=== PATIENT | male | born 1950 | race Caucasian/White ===

== ENCOUNTER 2018-11-30 09:06 | Outpatient (REF) | payer MEDICARE, SELFPAY ==
[2018-11-30 13:56] LABS: Anion Gap 11.3 mmol/L (3-11); BUN 22 mg/dL (7-18); CO2 25.7 mmol/L (21.0-32.0); CREATININE 1.24 mg/dL (0.70-1.30); Calcium 9.8 mg/dL (8.5-10.1); Chloride 101 mmol/L (98-107); Estimated GFR 57.97 (mL/min/1.73m2); Glucose 99 mg/dL (70-100); Potassium 4.5 mmol/L (3.5-5.1); Sodium 138 mmol/L (136-145)
== END 2018-11-30 09:26 ==
LOC: NCHCN 09:06
PROVIDERS: PCP Internal Medicine; Visit Provider Internal Medicine
DX: I10 Essential (primary) hypertension (principal)
CPT/HCPCS: 80048

== ENCOUNTER 2019-02-26 10:03 | Outpatient (REF) | payer MEDICARE, SELFPAY ==
[2019-02-26 12:54] LABS: Uric Acid 8.3 mg/dL (3.5-7.2)
== END 2019-02-26 10:23 ==
LOC: NCHCN 10:03
PROVIDERS: PCP Internal Medicine; Visit Provider Internal Medicine
DX: I10 Essential (primary) hypertension (principal); M10.9 Gout, unspecified
CPT/HCPCS: 84550

== ENCOUNTER 2019-06-15 11:20 | Emergency (ER) | payer MEDICARE, OTHER, SELFPAY ==
[2019-06-15 11:41] VITALS: BP 133/78; PULSE 100; RESP 17; TEMP 37.1; O2SAT 95
--- NOTE | 2019-06-15 12:01 | ED.GENADUL_ITS ---
Discharge Plan Disposition Patient Disposition: HOME Condition: Good Discharge Details Chief Complaint: Cellulitis Clinical Impression: Gouty arthritis Primary Care Provider: Wilber Lomax ED Provider: Hortensia Brown Home Meds and New Rx's Prescriptions: New colchicine 0.6 mg tablet 0.6 mg PO DAILY Qty: 7 RF: 0 No Action lisinopril 10 MG tablet 10 mg PO DAILY RF: 0 hydrochlorothiazide 12.5 mg Capsule 12.5 mg PO DAILY RF: 0 Discharge Instructions Instructions: Gout (ED) Additional Instructions: Ice to the area of swelling. Rest activities as tolerated. Use colchicine as discussed. Once your pain has improved significantly you may discontinue colchicine and begin NSAIDs such as ibuprofen or Motrin [id number] for discomfort. Follow-up with orthopedics as discussed. Return for alarming symptoms, increased pain, swelling or worsening symptoms sooner if needed Referrals: Gilmar Jenkins MD [ [facility] STAFF PHYSICIAN] - Discharge Data Discharge Date/Time-TO BE ENTERED AT DEPARTURE: 06/15/19 13:54 Medical Decision Making Is a 68-year-old patient with a history of BPH as well as essential hypertension who presents for complaints of left third digit pain and swelling. Patient reports 1 week ago he sustained a splinter beneath the nail removed most of the splinter then remove the remainder of the splinter last evening. Patient denies any pain beneath his nail however he reports swelling of his digit specifically the PIP joint redness and swelling have extended toward the palm. Patient reports mild pain toward the palm. Pain was maximum yesterday somewhat improved today however patient reports an increase in limitation of range of motion specifically he has his finger held at partial extension with limited flexion of the finger. Patient does have mild pain with extension of the digit passively. Patient has notable erythema over the PIP joint as well as swelling of the digit which does not diffusely involve the distal phalanx. No significant fluctuation or indication of abscess. At site of previous splinter there is no associated erythema, purulent drainage or pain to indicate infection. Labs specifically CBC, sed rate, CRP and uric acid were ordered in addition to x-ray of the digit. Consult orthopedics who will evaluate the patient in the emergency room. Patient has no associated leukocytosis or shift. Patient does have a notable elevation of his uric acid 7.9. Elevation of C-reactive protein 2.18. Sed rate 22. Orthopedics Dr. Jenkins, evaluated the patient and do not feel this patient likely has a infected tenosynovitis however they do feel likely has a focal infection or inflammatory condition involving the PIP joint only. Given patient's elevation of his uric acid feel likely this patient has gouty arthritis. Do not recommend aspiration or incision and drainage of the joint at this time rather treatment for acute gout and close observation. Recommend return if needed for increase or worsening symptoms. Again patient has no systemic signs or symptoms of infection. Patient agrees with plan of care. Colchicine prescribed, renal function reviewed. The patient was stable and requested discharge. Prior to discharge, my usual and customary return precautions were reviewed with the patient - this included follow-up instructions and reasons to return to the Emergency Department if conditions worsens, does not improve as expected, or other new concerns arise. HPI General Date/Time Provider Initiated Documentation: 06/15/19 12:00 . HPI Narrative: Is a 68-year-old patient who presents to the emergency room for concerns of left third digit pain. Patient reports he was working with wood approximately 1 week ago and had a splinter embedded beneath his fingernail he was able to partially remove most of the splinter. Patient reports yesterday he was able to fully remove the remainder of the splinter however finger is increasingly swollen. Patient specifically reports the PIP joint is moderately swollen and tender. Patient reports increasing pain with range of motion of the digit. Now having limited range of motion with flexion and extension. Patient reports pain is extending toward his palm. Denies any systemic symptoms. Denies any fever, chills, nausea vomiting. No other concerning complaints. No drainage beneath the nail. Tetanus up-to-date. Related Data Home Medications Medication Instructions Recorded Confirmed lisinopril 10 mg PO DAILY 02/17/16 06/15/19 colchicine 0.6 mg PO DAILY #7 tab 06/15/19 hydrochlorothiazide 12.5 mg PO DAILY 06/15/19 06/15/19 Previous Rx's Medication Instructions Recorded colchicine 0.6 mg PO DAILY #7 tab 06/15/19 Allergies Allergy/AdvReac Type Severity Reaction Status Date / Time No Known Allergies Allergy Unverified 06/15/19 11:44 General Stated Complaint: Cellulitis JESE: 3 Review of Systems All systems reviewed & are unremarkable except as noted in HPI and below Constitutional Constitutional: Denies chills, Denies fatigue, Denies fever(s), Denies headache(s) and Denies malaise ENT Ears, Nose, Mouth, and Throat: Denies headache(s) Musculoskeletal Musculoskeletal: Denies deformity, Reports joint swelling, Reports limited range of motion, Denies numbness, Reports stiffness and Denies tingling Integumentary/Breasts Skin/Breast: Reports erythema, Reports skin swelling and Reports wounds Neurologic Neurologic: Denies headache(s), Denies numbness and Denies tingling Endocrine Endocrine: Denies fatigue [facility] Medical History BPH with obstruction/lower urinary tract symptoms Essential hypertension Surgical History Appendectomy Social History Smoking/Tobacco Use Status: Never Alcohol Intake: current Alcohol Intake frequency: holidays/special occasions only Drug use: Never Do you feel safe at home: Yes Do you feel safe in your relationship?: Yes Exam Narrative Exam Narrative: CONST: Healthy appearing patient, in no acute distress. Well hydrated. Alert and alert. MUSCULOSKELETAL: Normal Gait. FROM of all extremities. Patient with limited flexion of left third digit. Mild pain with passive extension. Swelling of the digit is noted diffusely however maximum area of swelling noted over the PIP joint. Patient with mild erythema extending toward the palm with no associated lymphangitis. SKIN: Normal. Dry. No rashes. No obvious purulence or infected appearing wounds beneath the nail or at the nail bed. No associated paronychia. No focal fluctuance of the digit. Sensation intact distally. NEURO: Alert and awake. Speech clear. PSYCH: Normal affect. Cooperative. Course Vital Signs Vital signs: Vital Signs Temperature 37.1 C 06/15/19 11:41 Pulse 100 H 06/15/19 11:41 Respiratory Rate 17 06/15/19 11:41 Blood Pressure 133/78 06/15/19 11:41 Pulse Oximetry 95 06/15/19 11:41 Temperature 37.1 C 06/15/19 11:41 Pulse 100 H 06/15/19 11:41 Respiratory Rate 17 06/15/19 11:41 Respiratory Effort Non-Labored 06/15/19 11:43 Blood Pressure 133/78 06/15/19 11:41 Blood Pressure Position Sitting 06/15/19 11:41 Pulse Oximetry 95 06/15/19 11:41 Oxygen Delivery Method Room Air 06/15/19 11:41 Oxygen Flow Rate 0 06/15/19 11:41 Pain Level 2 06/15/19 11:41
[2019-06-15 12:44] LABS: Abs Immature Grans 0.01 k/cumm (0.0-0.09); Absolute Basophil Count 0.01 k/cumm (0.0-0.2); Absolute Eosinophil Count 0.08 k/cumm (0.0-0.7); Absolute Lymphocyte Count 0.88 k/cumm (1.2-3.4); Absolute Neutrophil Count 6.09 k/cumm (1.2-6.7); Basophils % 0.1; HCT 39.5 % (40.0-50.0); HGB 13.5 g/dL (13.5-17.5); Immature Grans % 0.1; Lymphocytes % 11.5; Mean Corp. HGB Concentration 34.2 g/dL (32.0-36.0); Mean Corpuscular Hemoglobin 30.9 pg (27.0-33.0); Mean Corpuscular Volume 90.4 fL (80-95); Mean Platelet Volume 9.7 fL (8.0-11.0); Monocytes % 7.8; Neutrophils % 79.5; Platelet Count 213 x1000/uL (130-400); RBC 4.37 m/cumm (4.50-6.00); RBC Distribution Width 12.8 % (11.8-14.1); White Blood Cell Count 7.67 k/cumm (4.4-10.8)
[2019-06-15] MEDS: cefTRIAXone 1 GM/50 ML BAG IVPB (12:52)
[2019-06-15 12:56] LABS: C-Reactive Protein 2.18 mg/dL (0.0-0.3)
[2019-06-15 13:08] LABS: Uric Acid 7.9 mg/dL (3.5-7.2)
--- NOTE | 2019-06-15 13:17 | DI.RAD_ITS ---
EXAM: XR FINGER LT MIDDLE INDICATION: Pain, wood stuck in finger removed 4 days ago. COMPARISON: No exams were available for comparison TECHNIQUE: 2D digital imaging was performed. FINDINGS: No acute fracture or dislocation is identified. Joint space narrowing, periarticular spurring and thao bchondral cysts are seen. No erosions are identified. There is soft tissue swelling of the left mid dle finger. No radiopaque foreign bodies are seen in the soft tissues. IMPRESSION: 1. No acute fracture or dislocation. 2. Soft tissue swelling of the left middle finger. 3. Osteoarthritis.
[2019-06-15 13:26] LABS: ESR 22 mm/hr (1-20)
[2019-06-15 13:51] VITALS: BP 135/90; PULSE 67; TEMP 37.5; O2SAT 97
[2019-06-15 13:53] VITALS: BP 135/90; PULSE 67; TEMP 37.5; O2SAT 97
--- NOTE | 2019-06-15 13:56 | OCONE_ITS ---
Date of service: 06/15/19 Time of Service: 14:00 History of Present Illness Narrative: Chief Complaint: Left hand long finger proximal knuckle swelling and pain HPI: 68-year-old male with approximately 5 days of left finger increasing swelling and tightness about the PIPJ. Thought it could be related to a splinter removed from the paronychia 6 days ago. However there is been no red ness, no drainage, he denies all fevers and chills. The pain is gradually increased as the swelling and tightness increased over the past few days. May actually be feeling better today than yesterday but thought it should be evaluated. No other puncture wounds or sources of infection. No significant pain with range of motion although it is limited by the joint swelling and tightness. Has significant related medical history of gout and podagra recently a few times this year. 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 History, physical exam, laboratory results, and radiographs all consistent with gouty arthritis at this time. Unlikely septic arthritis or concomitant septic arthritis. Initiate conservative medical treatments for acute gout attack. Patient very agreeable to this plan and is already started to improve probably over the last day. Follow-up with primary medical doctor for evaluation and optimization of gout. Follow-up with orthopedics as needed. No indication for acute surgical intervention at this time. Patient made aware of the common signs and symptoms of septic arthritis. Also made aware of the risk and possibility of superimposed bacterial infection. He will monitor his symptoms for continued improvement and return right away or call our answering service with any decompensation or concerns. Findings discussed with Diane Ascencio, PAC emergency room provider who is in agreement and will start treatment with colchicine and discharge the patient as he is making clinical improvement. All questions were answered Patient agrees and understands the treatment plan Hi will call if any changes or concerns Review of Systems Constitutional Constitutional: Denies chills and Denies fever(s) Eyes Eyes: Denies diplopia and Denies loss of vision ENT Ears, Nose, Mouth, and Throat: Denies dental pain and Denies other (cavities) Cardiovascular Cardiovascular: Denies chest pain with activity, Denies irregular heart rhythm and Denies dyspnea Respiratory Respiratory: Denies cough and Denies dyspnea Gastrointestinal Gastrointestinal: Denies nausea and Denies vomiting Musculoskeletal Musculoskeletal: Reports as per HPI Integumentary/Breasts Skin/Breast: Denies rash and Denies wounds Neurologic Neurologic: Reports as per HPI and Denies loss of vision Psychiatric Psychiatric: Denies anxiety and Denies depression Hematologic/Lymphatic Hematologic/Lymphatic: Denies easy bleeding and Denies easy bruising Allergic/Immunologic Allergic/Immunologic: Reports as per HPI [facility] Medical History (Updated 06/15/19 @ 17:06 by Gilmar Jenkins MD) BPH with obstruction/lower urinary tract symptoms Essential hypertension Surgical History Appendectomy Social History Smoking/Tobacco Use Status: Never Alcohol Intake: current Alcohol Intake frequency: holidays/special occasions o nly Drug use: Never Do you feel safe at home: Yes Do you feel safe in your relationship?: Yes Exam Const General: cooperative, comfortable and no acute distress Orientation: alert, awake and not confused Limitations: mental status not altered and no language barrier HENMT Head: normocephalic and atraumatic Neck Neck: normal visual inspection and full ROM Resp Effort & Inspection: normal respiratory effort, able to speak in complete sentences, no audible wheezes and no grunting General: deferred Skin Lesions: no lesions Rashes: no rashes Trauma: no lacerations or abrasions Wounds: no wounds Neuro General: alert, awake and oriented x3 Cognition: normal cognition Speech: speech normal Extrem Other: Full painless range of motion of bilateral upper extremities and bilateral lower extremities in the cervical spine. No other joints currently inflamed, swollen, or painful. Full painless cervical range of motion. Negative radiculopathy. Isolated significant circumferential joint effusion and edema about the left hand long finger PIPJ. No tenderness to palpation about the flexor tendons distally or proximally. No tenderness over the extensor tendon distally or proximally. No felon. No paronychia. No tenderness over the distal nail plate or pulp. Full sensation intact radial and ulnar digit. Brisk cap refill. No wounds, no drainage. Able to tolerate limited range of motion without significant discomfort. Range of motion limited by tightness and not true pain with passive short arc motion. Significant chronic radial and ulnar deformities appreciated of multiple digits proximal interphalangeal joints. Psych Appearance: grossly normal Mental Status: mental status grossly normal Speech and Movement: speech and movement normal Affect: normal affect Attitude: cooperative Results Last Vital Signs Temp 99.5 F 06/15/19 13:53 Pulse 67 06/15/19 13:53 Resp 17 06/15/19 11:41 BP 135/90 06/15/19 13:53 Pulse Ox 97 06/15/19 13:53 Labs Result diagrams: 06/15/19 12:31 Labs: Laboratory Results - last 24 hr 06/15/19 06/15/19 06/15/19 12:31 12:31 12:31 WBC 7.67 RBC 4.37 L Hgb 13.5 Hct 39.5 L MCV 90.4 MCH 30.9 MCHC 34.2 RDW 12.8 Plt Count 213 MPV 9.7 Immature Gran % 0.1 Neutrophils % 79.5 Lymphocytes % 11.5 Monocytes % 7.8 Eosinophils % 1.0 Basophils % 0.1 Absolute Neutrophils 6.09 Absolute Lymphocytes 0.88 L Absolute Monocytes 0.60 Absolute Eosinophils 0.08 Absolute Basophils 0.01 ESR 22 H Uric Acid 7.9 H C-Reactive Protein 2.18 H Imaging Additional studies: Afebrile temperature max 98.8. No leukocytosis WBC 7.7. Uric acid elevated at 7.9 with elevated CRP at 2.2. Imaging Studies: Left hand x-ray images and report independently reviewed: Report states soft tissue swelling and arthrosis about the long finger PIPJ. Significant, clearly visible punched out lesions and sclerotic overhanging edges. Joint space narrowing.
== END 2019-06-15 13:54 | disposition home or self-care (01) ==
PROVIDERS: Emergency Provider Physician Assistant; PCP Internal Medicine
DX: M10.9 Gout, unspecified (principal); I10 Essential (primary) hypertension
CPT/HCPCS: 36415; 85652; 96365; 99254; 99284; 73140; 84550; 85025; 86140; J0696

== ENCOUNTER 2019-08-24 10:29 | Outpatient (REF) | payer MEDICARE, SELFPAY ==
[2019-08-24 21:41] LABS: BUN 19 mg/dL (7-18); CREATININE 1.17 mg/dL (0.70-1.30); Calcium 9.9 mg/dL (8.5-10.1); Chloride 105 mmol/L (98-107); Glucose 107 mg/dL (74-106); Potassium 4.2 mmol/L (3.5-5.1); Sodium 141 mmol/L (136-145); Uric Acid 7.4 mg/dL (3.5-7.2)
== END 2019-08-24 10:49 ==
LOC: NCHCN 10:29
PROVIDERS: PCP Internal Medicine; Visit Provider Internal Medicine
DX: M10.9 Gout, unspecified (principal); I10 Essential (primary) hypertension; N40.1 Benign prostatic hyperplasia with lower urinary tract symptoms
CPT/HCPCS: 80048; 84550

== ENCOUNTER 2019-09-26 09:51 | Outpatient (REF) | payer MEDICARE, SELFPAY ==
[2019-09-26 22:12] LABS: Potassium 4.4 mmol/L (3.5-5.1)
== END 2019-09-26 10:11 ==
LOC: NCHCN 09:51
PROVIDERS: PCP Internal Medicine; Visit Provider Internal Medicine
DX: I10 Essential (primary) hypertension (principal)
CPT/HCPCS: 84132; 84550

== ENCOUNTER 2020-08-12 21:33 | Outpatient (REF) | payer MEDICARE, SELFPAY ==
[2020-08-13 14:20] LABS: COVID-19 RT-PCR UVMMC Result Negative (Negative)
== END 2020-08-12 21:34 | disposition home or self-care (01) ==
LOC: NCHCN 21:33
PROVIDERS: PCP Internal Medicine; Visit Provider Internal Medicine
DX: Z20.822 Contact with and (suspected) exposure to COVID-19 (principal)
CPT/HCPCS: U0003; U0005

== ENCOUNTER 2020-08-19 12:52 | Outpatient (REF) | payer MEDICARE, SELFPAY ==
[2020-08-20 15:20] LABS: COVID-19 RT-PCR UVMMC Result Negative (Negative)
== END 2020-08-19 12:53 | disposition home or self-care (01) ==
LOC: NCHCN 12:52
PROVIDERS: PCP Internal Medicine; Visit Provider Internal Medicine
DX: Z20.822 Contact with and (suspected) exposure to COVID-19 (principal)
CPT/HCPCS: U0003; U0005

== ENCOUNTER 2020-08-25 20:10 | Outpatient (REF) | payer MEDICARE, OTHER, SELFPAY ==
[2020-08-25 13:50] LABS: Anion Gap 8.1 mmol/L (3-11); BUN 17 mg/dL (7-18); CO2 26.9 mmol/L (21.0-32.0); CREATININE 1.1 mg/dL (0.70-1.30); Calcium 10.8 mg/dL (8.5-10.1); Calculated LDL 118 mg/dL (<100); Chloride 102 mmol/L (98-107); Cholesterol 197 mg/dL (<200); Glucose 96 mg/dL (74-106); HDL Cholesterol 44 mg/dL (40-60); Potassium 4.7 mmol/L (3.5-5.1); Sodium 137 mmol/L (136-145); Triglyceride 177 mg/dL (<150)
[2020-08-25 14:05] LABS: Uric Acid 6.1 mg/dL (3.5-7.2)
[2020-08-25 21:27] LABS: Rheumatoid Factor <8.6 IU/mL (<12.0)
[2020-08-26 10:15] LABS: Cyclic Citrullinated Peptide <2.5 U/mL (<5.0)
== END 2020-08-25 20:11 | disposition home or self-care (01) ==
LOC: NCHCN 20:10
PROVIDERS: PCP Internal Medicine; Visit Provider Internal Medicine
DX: I10 Essential (primary) hypertension (principal); M19.041 Primary osteoarthritis, right hand; M16.12 Unilateral primary osteoarthritis, left hip; M10.9 Gout, unspecified; Z13.220 Encounter for screening for lipoid disorders
CPT/HCPCS: 80048; 80061; 86200; 84550; 86431

== ENCOUNTER 2021-03-03 17:27 | Outpatient (REF) | payer MEDICARE, OTHER, SELFPAY ==
[2021-03-03 21:49] LABS: ALT 33 U/L (16-63); AST 19 U/L (15-37); Albumin 4.3 g/dL (3.4-5.0); Alkaline Phosphatase 104 U/L (46-116); Anion Gap 9.7 mmol/L (3-11); BUN 17 mg/dL (7-18); Bilirubin, Total 0.5 mg/dL (0.2-1.0); CO2 25.3 mmol/L (21.0-32.0); Calcium 10.2 mg/dL (8.5-10.1); Chloride 106 mmol/L (98-107); Glucose 96 mg/dL (74-106); Potassium 4.5 mmol/L (3.5-5.1); Sodium 141 mmol/L (136-145); Total Protein 7.1 g/dL (6.4-8.2); Uric Acid 4.6 mg/dL (3.5-7.2)
[2021-03-03 22:00] LABS: Calculated LDL 51 mg/dL (<100); Cholesterol 119 mg/dL (<200); HDL Cholesterol 39 mg/dL (40-60); Triglyceride 146 mg/dL (<150)
[2021-03-05 10:07] LABS: Parathyroid Hormone,Intact 27 pg/mL (19-88)
== END 2021-03-03 17:28 | disposition home or self-care (01) ==
LOC: NCHCN 17:27
PROVIDERS: PCP Internal Medicine; Visit Provider Internal Medicine
DX: I10 Essential (primary) hypertension (principal); M10.9 Gout, unspecified; Z86.39 Personal history of other endocrine, nutritional and metabolic disease
CPT/HCPCS: 80053; 80061; 83519; 83970; 84550

== ENCOUNTER 2021-04-22 23:16 | Emergency (ER) | payer MEDICARE, OTHER, SELFPAY ==
--- NOTE | 2021-04-22 23:15 | DI.CT_ITS ---
Exam(s) CT ABDOMEN PELVIS W EXAM: CT ABDOMEN PELVIS W CLINICAL HISTORY: mid umbilical abdominal pain, vomiting TECHNIQUE: COMPARISON: CT ABD PELVIS WO CONTRAST from 02/17/2016 FINDINGS: CT examination of the abdomen and pelvis was performed with bolus infusion of 100 cc of Omnipaque 350 . Images obtained through the lung bases are unremarkable. The liver appears normal except for apparent incidental small hepatic cysts period. Spleen is unremarkable in appearance.. Gallbladder and bile ducts are unremarkable. Pancreas is unremarkable in appearance. Adrenals appear normal bilaterally. Kidneys appear normal except for some apparent small bilateral renal cysts with no solid renal mass, hydronephrosis, or nephrolithiasis. Unremarkable bladder. There is no evidence of abdominal or pelvic adenopathy. Abdominal aorta is of normal diameter and no abnormality is seen involving major visceral branches.. Appendix is nonvisualized but there is no evidence of appendicitis. No evidence of diverticulitis. There is small bowel dilatation in mid abdomen with some fecalization of small bowel contents suggest ing partial or early small bowel obstruction, probable transition zone mid abdomen. No significant abdominal wall hernia seen. Impression: Probable early/incomplete small bowel obstruction, please see above discussion. Appropriate follow-u p studies requested. RADIATION DOSE DELIVERED: 1,034.81mGy.cm Total DLP 1,034.81mGy.cm Total DLP 20.61mGy CTDIvol DATA REPOSITORY: All CT scans at this facility are submitted to the National Radiology Data Registry (NRDR) Dose Index Registry (DIR) with the [employer] ([employer]). RADIATION OPTIMIZATION: All CT scans at this facility use at least one of these dose optimization te chniques: automated exposure control; mA and/or kV adjustment per patient size (includes targeted exa ms where dose is matched to clinical indication); or iterative reconstruction.
--- NOTE | 2021-04-22 23:15 | RT.EKG_ITS ---
APPROVED REPORT Exam: Resting ECG Reason for Exam: abdominal pain Patient Location: E HR:102 bpm ECG Measurements Heart Rate 102 AXIS MO 167 P 42 QRSd 85 QRS 39 QT 346 T 43 QTc 451 Conclusion Sinus tachycardia...rate> 99 Physician: no stemi
[2021-04-22 23:28] VITALS: BP 164/107; PULSE 100; RESP 20; TEMP 36.3; O2SAT 100
--- NOTE | 2021-04-22 23:44 | W.ED.GENAD ---
Discharge Plan Disposition Patient Disposition: HOME Condition: Good Discharge Details Clinical Impression: Bowel obstruction Primary Care Provider: Wilber Lomax ED Provider: Zach Lambert Home Meds and New Rx's Prescriptions: Continued lisinopril 10 MG tablet 10 mg PO DAILY RF: 0 colchicine 0.6 mg tablet 0.6 mg PO DAILY Qty: 7 RF: 0 atorvastatin 20 mg tablet 20 mg PO DAILY RF: 0 allopurinol 300 mg tablet 300 mg PO DAILY RF: 0 spironolactone 25 mg tablet 25 mg PO DAILY RF: 0 Discharge Instructions Instructions: Bowel Obstruction (ED) Additional Instructions: At this time your CAT scan shows that you have evidence of a small bowel obstruction. However your pain is completely resolved, and you have been able to tolerate water by mouth without difficulty. During our discussion together you have elected to go home. It is vitally important that you follow-up closely with your primary care provider soon as possible. Please take the Zofran as needed for nausea. For the next 24 hours only drink water in small regular sips. After that you can gradually and slowly transition to things like Jell-O, applesauce, or milkshakes. After 48 hours of that you can gradually transition to soft foods. After 48 hours of that you can transition to regular foods. If at any point your abdominal pain or vomiting returns please return immediately to the emergency department for reassessment as this would signify that your obstruction has not resolved. If you notice any worsening of your symptoms, or any new symptoms such as vomiting, diarrhea, fever, chills, shortness of breath, chest pain, numbness, weakness, or fainting , please return immediately to the emergency department for reevaluation. Please follow up with your primary care provider as soon as possible for reassessment and reevaluation. As always, it was a pleasure participating in your medical care today. Referrals: Wilber Lomax MD [Primary Care Provider] - Medical Decision Making 70-year-old male with a past medical history of appendectomy as a child, gout, high cholesterol, hypertension, presents today for evaluation of abdominal pain. The patient states that starting at noon he has severe abdominal pain describes as aching and stabbing in the central abdomen. Does not radiate anywhere else. He has had nausea as well as 3 episodes of vomiting. He denies any hematemesis. No diarrhea. No hematochezia. He denies symptoms like this in the past. He has not eaten anything today. Last bowel movement was this a.m. and it was normal. Pain does seem to come and go, but will only relapse for a few seconds. He denies any other complaints at this time. No other modifying. Physical exam demonstrates a mildly distended abdomen, reduce bowel sounds, generalized tenderness around the periumbilical region. Differential includes obstruction, colitis,. We will get CT scan, treat with pain medications, monitor closely and reassess. 2:23 AM Laboratory work-up has returned, minimal white count of 11, renal function stable, electrolytes are unremarkable. Troponin negative, EKG benign, lipase normal. On reassessment patient's pain had nearly completely resolved. Repeat abdominal exam demonstrates no significant abdominal tenderness. Patient is feeling much better. He has had no vomiting while here. Patient was given a glass of water and he was able to keep this down without any nausea or vomiting. Patient states that I feel great, I want to go home now. CT results demonstrate evidence of small bowel obstruction. This is not the first time the patient has had this. I had a long discussion with the patient regarding risk and benefit of home versus admission. At this time through shared decision-making process understanding the risk and benefit, including worst-case scenario of worsening of his problem and subsequent , patient has a leg to go home. Patient has agreed to rehab sips of water for the next 24 hours, then gradual transition of diet at home primarily utilizing a liquid diet. Given the complete resolution of the patient's pain, his ability to tolerate p.o. without any challenge, and his clear and unequivocal desire/decision to go home and not be admitted, taking all this into consideration we will respect patient's wishes and discharge home. I spent a notable amount of time with the patient and his significant other at bedside discussing his needed diet, signs and symptoms which would necessitate immediate return, as well as the importance of extremely close follow-up with his primary care provider for reassessment. Patient has been rehydrated with 1.5 L of normal saline, he continues to feel well. Patient will be discharged home. I have extensively reviewed the treatment plan and discharge instructions with the patient and their family. I have addressed all patient concerns at this time. The patient and family was made aware of what symptoms to monitor for that would warrant a return to the emergency department. Discussed the plan with the patient and family, they demonstrate verbal understanding and agreement with our assessment and plan at this time. The documentation in this chart was dictated using [employer] dictation software. Please excuse any dictation errors. FINDINGS: Liver: Multiple hepatic cysts. Scattered, hypoenhancing, too small to characterize lesions in each lobe. Gallbladder and bile ducts: Normal. No calcified stones. No ductal dilation. Pancreas: Normal. No ductal dilation. Spleen: Normal. No splenomegaly. Adrenal glands: Normal. No mass. Kidneys and ureters: Normal. No hydronephrosis. Stomach and bowel: There are multiple dilated loops of small bowel with air-fluid levels. Transition to normal caliber anteriorly in right mid abdomen, 11/19, . Small bowel feces sign. No colonic dilatation. Multiple sigmoid diverticula. Appendix: No evidence of appendicitis. Intraperitoneal space: Unremarkable. No free air. No significant fluid collection. Vasculature: Unremarkable. No abdominal aortic aneurysm. Lymph nodes: Unremarkable. No enlarged lymph nodes. Urinary bladder: Unremarkable as visualized. Reproductive: Enlarged prostate. Bones/joints: Unremarkable. No acute fracture. Soft tissues: Unremarkable. IMPRESSION: 1. Small bowel obstruction. 2. Sigmoid diverticula. 3. Enlarged prostate. Thank you for allowing us to participate in the care of your patient. Dictated and Authenticated by: Kenny Salinas DO 04/23/2021 2:04 AM Eastern Time ([place] & [place]) HPI General Date/Time Provider Initiated Documentation: 04/22/21 23:18. HPI Narrative: 70-year-old male with a past medical history of appendectomy as a child, gout, high cholesterol, hypertension, presents today for evaluation of abdominal pain. The patient states that starting at noon he has severe abdominal pain describes as aching and stabbing in the central abdomen. Does not radiate anywhere else. He has had nausea as well as 3 episodes of vomiting. He denies any hematemesis. No diarrhea. No hematochezia. He denies symptoms like this in the past. He has not eaten anything today. Last bowel movement was this a.m. and it was normal. Pain does seem to come and go, but will only relapse for a few seconds. He denies any other complaints at this time. No other modifying. Related Data Home Medications Medication Instructions Recorded Confirmed lisinopril 10 mg PO DAILY 02/17/16 04/22/21 colchicine 0.6 mg PO DAILY #7 tab 06/15/19 04/22/21 allopurinol 300 mg PO DAILY 04/22/21 04/22/21 atorvastatin 20 mg PO DAILY 04/22/21 04/22/21 spironolactone 25 mg PO DAILY 04/22/21 04/22/21 Previous Rx's Medication Instructions Recorded colchicine 0.6 mg PO DAILY #7 tab 06/15/19 Allergies Allergy/AdvReac Type Severity Reaction Status Date / Time No Known Allergies Allergy Unverified 04/22/21 23:31 General Stated Complaint: Abd Prob JESE: 3 Review of Systems All systems reviewed & are unremarkable except as noted in HPI and below PFSH Medical History BPH with obstruction/lower urinary tract symptoms Essential hypertension Surgical History Appendectomy Social History Smoking/Tobacco Use Status: Never Smoking risk assessment performed?: Yes Alcohol Intake: current Alcohol Intake frequency: holidays/special occasions only Drug use: Never Do you feel safe at home: Yes Do you feel safe in your relationship?: Yes Exam Narrative Exam Narrative: 1.Const: Well-nourished, Well-developed, appearing stated age 2.Eyes: PERRL, no conjunctival injection, and symmetrical lids. 3.ENT: Atraumatic external nose and ears. Dry MM. Neck: Symmetric, trachea midline, No thyromegaly. 4.CVS: +S1/S2, No murmurs or gallops. Peripheral pulses 2+ and equal in all extremities. Brisk capillary refill in all extremities. 5.RESP: Unlabored respiratory effort. Clear to auscultation bilaterally. No wheezes rales or rhonchi 6.GI: Slightly distended, mild guarding. Rectus diastases noted in the anterior abdominal wall. No clear evidence of hernia. No clear evidence of incarcerated or strangulated hernia. Mild tenderness throughout, primarily in the periumbilical region. There does appear to be some pain at McBurney's point, as well as some right upper quadrant tenderness however there is a negative Arevalo sign on exam. 7.MSK: Normocephalic/Atraumatic, Extremities w/o deformity or ttp No cyanosis or clubbing, Normal movement of all extremities 8.Skin: Warm, Dry. No rashes or lesions. 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 Sensation grossly intact, no focal neurologic deficits. 10.Psych: (AAO) x3. Appropriate mood and affect Course Vital Signs Vital signs: Vital Signs Temperature 36.3 C L 04/22/21 23:28 Pulse 100 H 04/22/21 23:28 Respiratory Rate 20 04/22/21 23:28 Blood Pressure 164/107 H 04/22/21 23:28 Pulse Oximetry 100 04/22/21 23:28 Temperature 36.3 C L 04/22/21 23:28 Temperature Source Temporal Artery Scan 04/22/21 23:28 Pulse 100 H 04/22/21 23:28 Respiratory Rate 20 04/22/21 23:28 Respiratory Effort 04/22/21 23:34 Blood Pressure 164/107 H 04/22/21 23:28 Blood Pressure Position Sitting 04/22/21 23:28 Pulse Oximetry 100 04/22/21 23:28 Oxygen Delivery Method Room Air 04/22/21 23:28 Oxygen Flow Rate 0 04/22/21 23:28 Pain Level 3 04/22/21 23:28
[2021-04-22 23:59] LABS: Abs Immature Grans 0.03 10^3/uL (0.0-0.06); Absolute Basophil Count 0.02 10^3/uL (0.0-0.2); Absolute Eosinophil Count 0.01 10^3/uL (0.0-0.7); Absolute Lymphocyte Count 0.74 10^3/uL (1.2-3.4); Basophils % 0.2; Eosinophils % 0.1; HCT 47.8 % (40.0-50.0); HGB 16.5 g/dL (13.5-17.5); Immature Grans % 0.3; Lymphocytes % 6.3; MCH 31.9 pg (27.0-33.0); MCHC 34.5 % (32.0-36.0); MCV 92.3 fL (80-95); MPV 9.9 fL (8.0-11.0); Monocytes % 4.2; Neutrophils % 88.9; Nucleated RBC 0 %; Platelet Count 231 10^3/uL (130-400); RBC 5.18 10^6/uL (4.36-5.78); RDW 12.4 % (11.8-14.1); RDW-SD 42.4 fL; WBC 11.82 10^3/uL (4.4-10.8)
[2021-04-23] VITALS (22 sets, daily range): BP systolic 133–178; BP diastolic 85–104; PULSE 91–111; RESP 11–21; TEMP 36.3; O2SAT 85–99
[2021-04-23] MEDS: Normal Saline 1,000 ML 1000 ML IV
[2021-04-23] MEDS: Ondansetron 4 MG/2 ML VIAL IVP
[2021-04-23 00:01] LABS: Absolute Neutrophil Count 10.51 10^3/uL (1.2-6.7)
[2021-04-23 00:16] LABS: ALT 33 U/L (16-63); AST 19 U/L (15-37); Albumin 4.4 g/dL (3.4-5.0); Alkaline Phosphatase 129 U/L (46-116); Anion Gap 9.7 mmol/L (3-11); BUN 25 mg/dL (7-18); Bilirubin, Total 0.8 mg/dL (0.2-1.0); CO2 24.3 mmol/L (21.0-32.0); CREATININE 1.4 mg/dL (0.70-1.30); Calcium 10.2 mg/dL (8.5-10.1); Chloride 104 mmol/L (98-107); Glucose 140 mg/dL (74-106); Lipase 137 U/L (73-393); Potassium 4.7 mmol/L (3.5-5.1); Sodium 138 mmol/L (136-145); Total Protein 7.6 g/dL (6.4-8.2)
[2021-04-23 00:17] LABS: Troponin I < 0.05 ng/mL (<0.06)
[2021-04-23] MEDS: Omnipaque 350 MG/ML 100 ML BTL IJ (00:42)
[2021-04-23] MEDS: Normal Saline - Diluent 50 ML VIAL IV (00:43)
[2021-04-23] MEDS: Normal Saline 500 ML IV (01:52)
--- NOTE | 2021-04-23 02:05 | DI.VRAD_ITS ---
PROCEDURE INFORMATION: Exam: CT Abdomen And Pelvis With Contrast Exam date and time: 04/22/2021 11:28 PM Age: 70 years old Clinical indication: Other: N/v umbilical pain TECHNIQUE: Imaging protocol: Computed tomography of the abdomen and pelvis with contrast. COMPARISON: CT ABD PELVIS WO CONTRAST 02/17/2016 10:32 PM FINDINGS: Liver: Multiple hepatic cysts. Scattered, hypoenhancing, too small to characterize lesions in each lobe. Gallbladder and bile ducts: Normal. No calcified stones. No ductal dilation. Pancreas: Normal. No ductal dilation. Spleen: Normal. No splenomegaly. Adrenal glands: Normal. No mass. Kidneys and ureters: Normal. No hydronephrosis. Stomach and bowel: There are multiple dilated loops of small bowel with air-fluid levels. Transition to normal caliber anteriorly in right mid abdomen, 11/19, . Small bowel feces sign. No colonic dilatation. Multiple sigmoid diverticula. Appendix: No evidence of appendicitis. Intraperitoneal space: Unremarkable. No free air. No significant fluid collection. Vasculature: Unremarkable. No abdominal aortic aneurysm. Lymph nodes: Unremarkable. No enlarged lymph nodes. Urinary bladder: Unremarkable as visualized. Reproductive: Enlarged prostate. Bones/joints: Unremarkable. No acute fracture. Soft tissues: Unremarkable. IMPRESSION: 1. Small bowel obstruction. 2. Sigmoid diverticula. 3. Enlarged prostate. Dictated and Authenticated by: Kenny Salinas MD. Ordering:VIRIDIANA Serrano MD
[2021-04-23] MEDS: Ondansetron O.D.T. 4 MG TABEF, 3 TABS/BTL PO (02:45)
== END 2021-04-23 02:52 | disposition home or self-care (01) ==
LOC: ER 04-23 02:55
PROVIDERS: Emergency Provider Student in an Organized Health Care Education/Training Program; PCP Internal Medicine
DX: K56.699 Other intestinal obstruction unspecified as to partial versus complete obstruction (principal); R11.2 Nausea with vomiting, unspecified; R10.33 Periumbilical pain
CPT/HCPCS: 36415; 80053; 83690; 93005; 96361; 96374; 96375; 99285; 74177; 81003; 84484; 85025; 93010; J2405; J3490

== ENCOUNTER 2022-02-22 18:26 | Outpatient (REF) | payer MEDICARE, SELFPAY ==
[2022-02-22 15:19] LABS: ALT 35 U/L (16-63); AST 27 U/L (15-37); Albumin 4.1 g/dL (3.4-5.0); Alkaline Phosphatase 112 U/L (46-116); Anion Gap 8.4 mmol/L (3-11); BUN 17 mg/dL (7-18); Bilirubin, Total 0.5 mg/dL (0.2-1.0); CO2 27.6 mmol/L (21.0-32.0); CREATININE 0.8 mg/dL (0.70-1.30); Calcium 9.8 mg/dL (8.5-10.1); Chloride 104 mmol/L (98-107); Glucose 90 mg/dL (74-106); Potassium 5.3 mmol/L (3.5-5.1); Sodium 140 mmol/L (136-145); Total Protein 7.1 g/dL (6.4-8.2)
[2022-02-23 09:38] LABS: Parathyroid Hormone,Intact 62 pg/mL (19-88)
== END 2022-02-22 18:27 | disposition home or self-care (01) ==
LOC: NCHCN 18:26
PROVIDERS: PCP Internal Medicine; Visit Provider Family Medicine
DX: I10 Essential (primary) hypertension (principal); Z86.39 Personal history of other endocrine, nutritional and metabolic disease
CPT/HCPCS: 80053; 83970

== ENCOUNTER 2022-08-25 14:33 | Outpatient (REF) | payer MEDICARE, SELFPAY ==
[2022-08-25 15:51] LABS: Anion Gap 8.1 mmol/L (3-11); BUN 19 mg/dL (7-18); CO2 26.9 mmol/L (21.0-32.0); CREATININE 0.9 mg/dL (0.70-1.30); Calcium 9.9 mg/dL (8.5-10.1); Chloride 104 mmol/L (98-107); Estimated GFR 91.31 (mL/min/1.73m2); Glucose 84 mg/dL (74-106); Potassium 4.4 mmol/L (3.5-5.1); Sodium 139 mmol/L (136-145); Uric Acid 4.2 mg/dL (3.5-7.2)
== END 2022-08-25 14:34 | disposition home or self-care (01) ==
LOC: NCHCN 14:33
PROVIDERS: PCP Internal Medicine; Visit Provider Family Medicine
DX: I10 Essential (primary) hypertension (principal); M10.9 Gout, unspecified
CPT/HCPCS: 80048; 84550

== ENCOUNTER 2023-02-15 08:45 | Outpatient (REF) | payer MEDICARE, SELFPAY ==
[2023-02-15 15:12] LABS: ALT 29 U/L (16-63); AST 17 U/L (15-37); Albumin 4.1 g/dL (3.4-5.0); Alkaline Phosphatase 113 U/L (46-116); Anion Gap 9.7 mmol/L (3-11); BUN 14 mg/dL (7-18); Bilirubin, Total 0.7 mg/dL (0.2-1.0); CO2 25.3 mmol/L (21.0-32.0); CREATININE 1.1 mg/dL (0.70-1.30); Calcium 9.5 mg/dL (8.5-10.1); Calculated LDL 39 mg/dL (<100); Chloride 105 mmol/L (98-107); Cholesterol 94 mg/dL (<200); Estimated GFR 71.32 (mL/min/1.73m2); Glucose 89 mg/dL (74-106); HDL Cholesterol 44 mg/dL (40-60); Potassium 4.9 mmol/L (3.5-5.1); Sodium 140 mmol/L (136-145); Triglyceride 57 mg/dL (<150)
== END 2023-02-15 08:46 | disposition home or self-care (01) ==
LOC: NCHCN 08:45
PROVIDERS: PCP Internal Medicine; Visit Provider Family Medicine
DX: E78.5 Hyperlipidemia, unspecified (principal); I10 Essential (primary) hypertension; E66.9 Obesity, unspecified
CPT/HCPCS: 80053; 80061

== ENCOUNTER 2024-02-21 15:06 | Outpatient (REF) | payer MEDICARE, SELFPAY ==
[2024-02-21 17:03] LABS: ALT 32 U/L (16-63); AST 19 U/L (15-37); Albumin 4.1 g/dL (3.4-5.0); Alkaline Phosphatase 112 U/L (46-116); Anion Gap 6.1 mmol/L (3-11); BUN 20 mg/dL (7-18); Bilirubin, Total 0.62 mg/dL (0.2-1.0); CO2 28.9 mmol/L (21.0-32.0); CREATININE 1.1 mg/dL (0.70-1.30); Calcium 10.3 mg/dL (8.5-10.1); Calculated LDL 72 mg/dL (<100); Chloride 106 mmol/L (98-107); Cholesterol 133 mg/dL (<200); Estimated GFR 70.88 (mL/min/1.73m2); Glucose 85 mg/dL (74-106); HDL Cholesterol 48 mg/dL (40-60); Sodium 141 mmol/L (136-145); Total Protein 6.9 g/dL (6.4-8.2); Triglyceride 67 mg/dL (<150); Vitamin D 25 Total 49.1 ng/mL (30-100)
[2024-02-21 17:34] LABS: Uric Acid 4.8 mg/dL (3.5-7.2)
[2024-02-21 22:38] LABS: Parathyroid Hormone,Intact 77 pg/mL (19-88)
== END 2024-02-21 15:07 | disposition home or self-care (01) ==
LOC: NCHCN 15:06
PROVIDERS: PCP Internal Medicine; Visit Provider Family Medicine
DX: E78.5 Hyperlipidemia, unspecified (principal); Z86.39 Personal history of other endocrine, nutritional and metabolic disease
CPT/HCPCS: 80053; 80061; 82306; 83970; 84550

== ENCOUNTER 2025-02-28 09:56 | Outpatient (REF) | payer MEDICARE, SELFPAY ==
[2025-02-28 17:49] LABS: Abs Immature Grans 0.03 10^3/uL (0.0-0.06); HCT 45.1 % (40.0-50.0); HGB 15.2 g/dL (13.5-17.5); Immature Grans % 0.5 %; MCH 31.3 pg (27.0-33.0); MCHC 33.7 % (32.0-36.0); MCV 93 fL (80-95); MPV 10.8 fL (8.0-11.0); Platelet Count 169 10^3/uL (130-400); RBC 4.85 10^6/uL (4.36-5.78); RDW 13.4 % (11.8-14.1); RDW-SD 45.2 fL; WBC 6.29 10^3/uL (4.4-10.8)
[2025-02-28 18:05] LABS: ALT 48 U/L (16-63); AST 34 U/L (15-37); Albumin 4.4 g/dL (3.4-5.0); Alkaline Phosphatase 111 U/L (46-116); Anion Gap 8.1 mmol/L (3-11); BUN 17 mg/dL (7-18); Bilirubin, Total 0.6 mg/dL (0.2-1.0); CO2 27.9 mmol/L (21.0-32.0); Calcium 11.0 mg/dL (8.5-10.1); Chloride 105 mmol/L (98-107); Estimated GFR 89.62 (mL/min/1.73m2); Glucose 102 mg/dL (74-106); Potassium 5.1 mmol/L (3.5-5.1); Sodium 141 mmol/L (136-145); Total Protein 7.3 g/dL (6.4-8.2); Uric Acid 4.9 mg/dL (3.5-7.2)
[2025-03-01 18:48] LABS: PSA, Screening 3.6 ng/mL (<=6.5)
== END 2025-02-28 09:57 | disposition home or self-care (01) ==
LOC: NCHCN 09:56
PROVIDERS: PCP Internal Medicine; Visit Provider Family Medicine
DX: Z12.5 Encounter for screening for malignant neoplasm of prostate (principal); I10 Essential (primary) hypertension; M10.9 Gout, unspecified
CPT/HCPCS: 80053; 84153; 84550; 85025